=== PATIENT | male | born 1955 | race American Indian/Alaskan Native ===

== ENCOUNTER 2024-04-17 16:19 | Inpatient (IN) | payer OTHER ==
[~2024-04-17] VITALS: Ht 182.9 cm; Wt 70.7 kg
[2024-04-17 16:44] LABS: Basophils # (auto) 0.1 10 ^3/uL (0-0.2); Basophils % (auto) 0.4 % (0.0-2.0); Eosinophils # (auto) 0 10 ^3/uL (0-0.8); Eosinophils % (auto) 0.2 % (0.0-7.0); Hematocrit 41.7 % (41.0-53.0); Hemoglobin 13.9 g/dL (13.5-17.5); Lymphocytes # (auto) 1.2 10 ^3/uL (0.4-5.4); Mean Corpuscular Hgb Conc. 33.4 g/dL (32.0-36.0); Monocytes # (auto) 0.8 10 ^3/uL (0-1.3); Monocytes % (auto) 5.6 % (0.0-12.0); Neutrophils # (auto) 12.8 10 ^3/uL (1.6-8.6); Neutrophils % (auto) 85.8 % (37.0-80.0); Nucleated Red Blood Cells % 0.1 %; Red Blood Cells 4.35 10^6/uL (4.5-5.90); Red Cell Distribution Width 13.7 % (11.8-14.3); White Blood Cell 14.9 10^3/uL (4.4-10.8)
[2024-04-17 17:07] LABS: Alanine Aminotransferase 101 U/L (7-40); Albumin 4.1 g/dL (3.2-4.8); Alkaline Phosphatase 82 U/L (46-116); Anion Gap 3 (5-15); Aspartate Aminotransferase 76 U/L (13-40); BUN/Creatinine Ratio 8.2 (10.0-20.0); Bilirubin, Total 0.7 mg/dL (0.2-1.0); Blood Urea Nitrogen 9 mg/dL (9-23); Carbon Dioxide 30 mmol/L (20-30); Chloride 103 mmol/L (98-107); Glucose 154 mg/dL (74-106); Potassium 4.2 mmol/L (3.5-5.1); Sodium 136 mmol/L (136-145); Total Protein 7.2 g/dL (5.7-8.2)
[2024-04-17 17:17] LABS: INR 1.03 (0.9-1.15); Partial Thromboplastin Time 24.5 SEC (24.5-34.5); Prothrombin Time 10.9 sec (9.3-11.8)
[2024-04-17 17:26] LABS: Urine Bacteria FEW /hpf (None Seen); Urine Blood Negative /uL (Negative); Urine Clarity Clear (Clear); Urine Color Yellow (Yellow); Urine Mucus FEW (None Seen); Urine Protein, UAD 1+ (Negative); Urine Specific Gravity 1.023 (1.001-1.035); Urine Urobilinogen Normal (Negative); Urine WBC 16 /hpf (0 - 3)
[2024-04-17 17:39] LABS: Amphetamine Screen, Urine Pos (NEGATIVE); Barbiturate Scree,Urine Neg (NEGATIVE); Benzodiazephine Screen, Urine Neg (NEGATIVE); Cocaine Screen, Urine Neg (NEGATIVE); Opiate Scree,Urine Neg (NEGATIVE)
[2024-04-17 17:40] LABS: Cannabinoid Screen, Urine Pos (NEGATIVE); Phencyclidine Screen, Urine Neg (NEGATIVE)
[2024-04-17] MEDS: cefTRIAXone 1GM/50ML D5W 50 ML IV ONE (18:11)
[2024-04-17] MEDS: ASPirin 325 MG TAB PO ONE (18:12)
[2024-04-17] MEDS: SODIUM CHLORIDE 0.9% 1,000 ML IV ONE (18:12)
[2024-04-17] MEDS: NITROGLYCERIN 0.4 MG SL TAB SL ONE (18:12)
[2024-04-17 19:05] VITALS: PULSE 75; RESP 18; O2SAT 98
[2024-04-17] MEDS ORDERED: DOCUSATE SOD 100 MG CAP PO PRN (20:15)
[2024-04-17] MEDS ORDERED: NITROGLYCERIN 0.4 MG SL TAB SL PRN (20:15)
[2024-04-17] MEDS ORDERED: ACETAMINOPHEN 325 MG TAB PO PRN (20:15)
[2024-04-17] MEDS ORDERED: MORPHINE SULFATE INJ 2 MG/ml SYRG IV PRN (20:15)
[2024-04-17] MEDS ORDERED: ONDANSETRON HCL 4 MG/2 ML VIAL IV PRN (20:15)
[2024-04-17] MEDS: IOHEXOL 350 MG/ML 100ML IJ ONE (20:52)
[2024-04-17] MEDS: SODIUM CHLOR 0.9% PF (SALINE LOCK) 10ML VIAL/SYR IV SCH (22:00)
[2024-04-17] MEDS: ATORVASTATIN 20 MG TAB PO SCH (23:49)
[2024-04-18] MEDS: HYDROcodone-ACET 5/325MG TAB PO PRN (00:14)
[2024-04-18 03:54] LABS: Basophils # (auto) 0.1 10 ^3/uL (0-0.2); Basophils % (auto) 0.4 % (0.0-2.0); Eosinophils # (auto) 0.1 10 ^3/uL (0-0.8); Eosinophils % (auto) 0.7 % (0.0-7.0); Hematocrit 39.9 % (41.0-53.0); Hemoglobin 13.6 g/dL (13.5-17.5); Lymphocytes % (auto) 14.6 % (10.0-50.0); Mean Corpuscular Hemoglobin 32.7 pg (28.0-32.0); Mean Corpuscular Volume 95.9 fL (80.0-100.0); Monocytes % (auto) 7.1 % (0.0-12.0); Neutrophils # (auto) 10.4 10 ^3/uL (1.6-8.6); Neutrophils % (auto) 77.2 % (37.0-80.0); Nucleated Red Blood Cells % 0.2 %; Red Blood Cells 4.16 10^6/uL (4.5-5.90); Red Cell Distribution Width 13.5 % (11.8-14.3); White Blood Cell 13.5 10^3/uL (4.4-10.8)
[2024-04-18 03:59] LABS: Alanine Aminotransferase 87 U/L (7-40); Albumin 3.8 g/dL (3.2-4.8); Alkaline Phosphatase 72 U/L (46-116); Anion Gap 4 (5-15); Aspartate Aminotransferase 64 U/L (13-40); BUN/Creatinine Ratio 9.8 (10.0-20.0); Bilirubin, Total 0.9 mg/dL (0.2-1.0); Blood Urea Nitrogen 9 mg/dL (9-23); Calcium 8.9 mg/dL (8.5-10.1); Carbon Dioxide 27 mmol/L (20-30); Chloride 104 mmol/L (98-107); Glucose 110 mg/dL (74-106); Potassium 3.9 mmol/L (3.5-5.1); Sodium 135 mmol/L (136-145); Total Protein 6.8 g/dL (5.7-8.2)
[2024-04-18 09:15] LABS: Triglycerides 38 mg/dL (< 150)
[2024-04-18 09:16] LABS: LDL Cholesterol 82 mg/dL (< 100)
[2024-04-18 09:17] LABS: HDL Cholesterol 43 mg/dL (40-59)
[2024-04-18 09:18] LABS: Cholesterol 130 mg/dL (< 200)
[2024-04-18] MEDS: ASPirin 81 mg TAB PO SCH (10:51)
[2024-04-18] MEDS: cefTRIAXone 1GM/50ML D5W 50 ML IV SCH (10:59)
[2024-04-18 13:06] VITALS: BP 127/68; PULSE 59; RESP 17; TEMP 97.6; O2SAT 98
[2024-04-18 16:26] VITALS: RESP 18; O2SAT 100
[2024-04-18 17:00] VITALS: BP 111/50; PULSE 68; RESP 18; TEMP 97.5; O2SAT 100
[2024-04-18 17:23] VITALS: TEMP 36.4
== END 2024-04-18 18:35 | disposition home or self-care (01) | DRG 313 ==
LOC: ER 16:19 → TELE 20:17 → TELE-E-ADS 04-18 10:10 → TELE-CENTR 04-18 14:45
PROVIDERS: ADMIT Nurse Practitioner Family; ATTEND Internal Medicine Geriatric Medicine
DX: R07.89 Other chest pain (principal); R73.9 Hyperglycemia, unspecified; F15.10 Other stimulant abuse, uncomplicated; F12.10 Cannabis abuse, uncomplicated; G89.29 Other chronic pain; Z86.73 Personal history of transient ischemic attack (TIA), and cerebral infarction without residual deficits; Z87.891 Personal history of nicotine dependence
CPT/HCPCS: 36415; 71045; 71275; 80053; 80061; 80307; 80320; 81001; 83036; 83605; 84484; 85025; 85379; 85610; 85730; 87086; 93005; 93306; G0378

== ENCOUNTER 2024-07-08 19:47 | Emergency (ER) | payer OTHER ==
[~2024-07-08] VITALS: Ht 182.9 cm; Wt 75.8 kg
[2024-07-08 20:05] VITALS: BP 130/82; RESP 16; O2SAT 96
[2024-07-08 20:42] VITALS: PULSE 81
[2024-07-09] MEDS: HYDROcodone-ACET 10/325MG TAB PO ONE (00:42)
[2024-07-09] MEDS: IBUPROFEN 800 MG TAB PO ONE (00:42)
[2024-07-09] MEDS ORDERED: HYDR-4798 PO (02:28)
[2024-07-09] MEDS ORDERED: IBUP200T76 PO (02:28)
== END 2024-07-09 03:16 | disposition home or self-care (01) ==
LOC: ER 19:47
DX: S33.5XXA Sprain of ligaments of lumbar spine, initial encounter (principal); M48.061 Spinal stenosis, lumbar region without neurogenic claudication; M54.16 Radiculopathy, lumbar region; M43.16 Spondylolisthesis, lumbar region; M47.816 Spondylosis without myelopathy or radiculopathy, lumbar region; F15.10 Other stimulant abuse, uncomplicated; Z87.891 Personal history of nicotine dependence; W18.09XA Striking against other object with subsequent fall, initial encounter; Y93.89 Activity, other specified; Y92.89 Other specified places as the place of occurrence of the external cause; Y99.8 Other external cause status
CPT/HCPCS: 72131; 93005

== ENCOUNTER 2025-07-31 23:55 | Emergency (ER) | payer OTHER ==
[~2025-07-31] VITALS: Ht 182.9 cm; Wt 72.6 kg
[~2025-07-31 23:55] MED LIST: HYDR-4798 PO; IBUP200T76 PO
[2025-08-01 00:33] LABS: Hematocrit 41.2 % (41.0-53.0); Hemoglobin 14.3 g/dL (13.5-17.5); Mean Corpuscular Hemoglobin 32.4 pg (28.0-32.0); Mean Corpuscular Volume 93.6 fL (80.0-100.0); Nucleated Red Blood Cells % 0.1 %
[2025-08-01] MEDS: IPRATROPIUM BROM 0.5 MG/2.5ML INH SOL NEB ONE (00:37)
[2025-08-01] MEDS: ALBUTEROL SULF 2.5 MG/0.5ML(0.5%) NEB SOLN NEB ONE (00:37)
[2025-08-01 00:51] LABS: Chloride 98 mmol/L (98-107); Potassium 4.1 mmol/L (3.5-5.1)
[2025-08-01 00:52] LABS: Anion Gap 12 (5-15); Carbon Dioxide 25 mmol/L (20-31)
[2025-08-01 00:54] LABS: Calcium 8.4 mg/dL (8.7-10.4); Sodium 135 mmol/L (136-145)
[2025-08-01 00:57] LABS: BUN/Creatinine Ratio 15.1 (10.0-20.0); Blood Urea Nitrogen 16 mg/dL (9-23)
[2025-08-01 01:04] LABS: Glucose 106 mg/dL (74-106)
--- NOTE | 2025-08-01 01:06 | ECG ---
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
--- NOTE | 2025-08-01 01:08 | DVH ---
CHEST RADIOGRAPH Indication: Shortness of breath Technique: Single frontal view of the chest was obtained COMPARISON: CT CT ANGIO CHEST CONTRAST on DOS: 04/17/24, XY CHEST PORTABLE on DOS: 04/17/24 FINDINGS: Lines and Tubes: None Lungs: Moderate patchy left basilar pulmonary infiltrate. Pleura: No effusion. No pneumothorax. Cardiomediastinal contours: Unremarkable Bones: Unremarkable IMPRESSION: 1. Moderate patchy left basilar pulmonary infiltrate.
[2025-08-01] MEDS ORDERED: BENZ100C97 PO (02:05)
[2025-08-01] MEDS ORDERED: ACET500T58 PO (02:05)
[2025-08-01] MEDS ORDERED: DOXY1CAP57 PO (02:05)
[2025-08-01] MEDS ORDERED: AZIT500T66 PO (02:05)
[2025-08-01] MEDS ORDERED: ALBU108A5 IN (02:05)
--- NOTE | 2025-08-01 02:06 | ED.PDOC ---
SOB-HPI HPI Comments Has been is a 69-year-old male who arrives to the ED today for evaluation of shortness a breath and cough concerns for the past two weeks. Patient states that the symptoms came on a few weeks ago and has been relatively consistent. Patient denies any intrapulmonary concerns. Patient states he had pneumonia several years back and that this feels similar. Patient denies any nausea or vomiting but states possible intermittent fever. Patient was tachycardic and hypertensive at arrival. Patient was satting at 93% on room air. Chief Complaint: Shortness of Breath Time Seen by MD: 00:00 Reviewed notes: Nurses Notes Information Source: Patient, Friend Mode of Arrival: Ambulatory Severity: Moderate Timing: Weeks Duration: Since onset Context: At Rest PE Risk Factors: None History of: None Prehospital treatment: None Modifying Factors: Nothing Associated Signs and Symptoms: Fever, Cough Quality: Burning If cough with SOB: Productive, White Past Medical History PAST MEDICAL HISTORY: Denies Surgical History: Hernia Repair Family History Family History: Reviewed,noncontributory to illness Social History Smoker: Non-Smoker, Quit Greater Than 1 Year Alcohol: Heavy Drugs: Methamphetamine Lives In: Home Constitutional: reports: fever, weakness; denies: chills, diaphoresis, fatigue, malaise, sweats, others EENTM: denies: blurred vision, double vision, ear bleeding, ear discharge, ear drainage, ear pain, ear ringing, eye pain, eye redness, hearing loss, mouth pain, mouth swelling, nasal discharge, nose bleeding, nose congestion, nose pain, photophobia, tearing, throat pain, throat swelling, voice changes, others Respiratory: reports: cough, shortness of breath; denies: hemoptysis, orthopnea , SOB at rest, SOB with excertion, stridor, wheezing, others Cardiovascular: reports: chest pain (Pruritic); denies: dizzy spells, diaphoresis, Dyspnea on exertion, edema, irregular heart beat, left arm pain, lightheadedness, palpitations, PND, syncope, others Gastrointestinal: denies: abdomen distended, abdominal pain, blood streaked bowels, constipated, diarrhea, dysphagia, difficulty swallowing, hematemesis, melena, nausea, poor appetite, poor fluid intake, rectal bleeding, rectal pain, vomiting, others Genitourinary: denies: burning, dysuria, flank pain, frequency, hematuria, incontinence, penile discharge, penile sore, pain, testicle pain, testicle swelling, urgency, others Neurological: denies: dizziness, fainting, headache, left sided numbness, left sided weakness, numbness, paresthesia, pre-existing deficit, right sided numbness, right sided weakness, seizure, speech problems, tingling, tremors, weakness, others Musculoskeletal: denies: back pain, gout, joint pain, joint swelling, muscle pain, muscle stiffness, neck pain, others Integumetry: denies: bruises, change in color, change in hair/nails, dryness, laceration, lesions, lumps, rash, wounds, others Hematologic/Lymphatic: denies: anemia, blood clots, easy bleeding, easy bruising, swollen glands, others Endocrine: denies: excessive hunger, excessive sweating, excessive thirst, excessive urination, flushing, intolerance to cold, intolerance to heat, unexplained weight gain, unexplained weight loss, others Psychiatric: denies: anxiety, bipolar disorder, depression, hopeless, panic disorder, schizophrenia, sleepless, suicidal, others Physical Exam General Appearance: Moderate Distress (Patient presents as a moderately ill male.), Normal HEENT: Normal ENT Inspection, Pharynx Normal, TMs Normal Neck: Full Range of Motion, Non-Tender, Normal, Normal Inspection Respiratory: Other (Mild patchy rhonchi and wheezing appreciated right middle lobe and left upper lobe.) Cardiovascular: No Edema, No JVD, No Murmur, No Gallop, Normal Peripheral Pulses, Tachycardia Breast Exam: Deferred Gastrointestinal: No Organomegaly, Non Tender, No Pulsatile Mass, Normal Bowel Sounds, Soft Genitalia: Deferred Pelvic: Deferred Rectal: Deferred Extremities: No calf tenderness, Normal capillary refill, Normal inspection, Normal range of motion, Non-tender, No pedal edema Neurologic: Alert Cerebellar Function: NOT DONE Reflexes: NOT DONE Skin: Dry, Normal Color, Warm Lymphatic: No Adenopathy Was a procedure done? Was a procedure done?: No Differential Dx Differential Diagnosis: Asthma, Bronchitis, Myocardial infarction, Pneumonia, Respiratory Distress X-Ray, Labs, Meds, VS Vital Signs Date Time Temp Pulse Resp B/P (MAP) Pulse Ox O2 Delivery O2 Flow Rate FiO2 08/01/25 01:10 101 08/01/25 00:35 18 93 Room Air* 0 21 07/31/25 23:57 98.9 106 20 162/85 95 98.9 Lab Test 08/01/25 01:40 08/01/25 00:19 Range/Units Troponin I High Sensitivity Pending < 3 L </=54 ng/L White Blood Count 12.7 H 4.4-10.8 10^3/uL Red Blood Count 4.40 L 4.5-5.90 10^6/uL Hemoglobin 14.3 13.5-17.5 g/dL Hematocrit 41.2 41.0-53.0 % Mean Corpuscular Volume 93.6 80.0-100.0 fL Mean Corpuscular Hemoglobin 32.4 H 28.0-32.0 pg Mean Corpuscular Hemoglobin Concent 34.6 32.0-36.0 g/dL Red Cell Distribution Width 12.4 11.8-14.3 % Platelet Count 315 140-450 10^3/uL Mean Platelet Volume 7.1 6.9-10.8 fL Neutrophils (%) (Auto) 75.8 37.0-80.0 % Lymphocytes (%) (Auto) 14.6 10.0-50.0 % Monocytes (%) (Auto) 8.8 0.0-12.0 % Eosinophils (%) (Auto) 0.6 0.0-7.0 % Basophils (%) (Auto) 0.2 0.0-2.0 % Neutrophils # (Auto) 9.6 H 1.6-8.6 10 ^3/uL Lymphocytes # (Auto) 1.9 0.4-5.4 10 ^3/uL Monocytes # (Auto) 1.1 0-1.3 10 ^3/uL Eosinophils # (Auto) 0.1 0-0.8 10 ^3/uL Basophils # (Auto) 0 0-0.2 10 ^3/uL Nucleated Red Blood Cells 0.1 % Sodium Level 135 L 136-145 mmol/L Potassium Level 4.1 3.5-5.1 mmol/L Chloride Level 98 98-107 mmol/L Carbon Dioxide Level 25 20-31 mmol/L Anion Gap 12 5-15 Blood Urea Nitrogen 16 9-23 mg/dL Creatinine 1.06 0.700-1.30 mg/dL Glomerular Filtration Rate Calc 76 >90 mL/min BUN/Creatinine Ratio 15.1 10.0-20.0 Serum Glucose 106 74-106 mg/dL Calcium Level 8.4 L 8.7-10.4 mg/dL Current Medications Medications (Trade) Dose Ordered Sig/[place] Route Start Time Stop Time Status Last Admin Albuterol (Ventolin Medneb) 2.5 mg ONCE ONCE NEB 08/01/25 00:15 08/01/25 00:16 DC 08/01/25 00:37 Ipratropium [place] (Atrovent Medneb) 0.5 mg ONCE ONCE NEB 08/01/25 00:15 08/01/25 00:16 DC 08/01/25 00:37 X-Ray, Labs, Meds, VS Comment All studies performed the ED were evaluated by me personally. Laboratories were unremarkable for any systemic process. EKG revealed a sinus rhythm with a rate of 99. OH interval of 113 and QT interval of 342. Normal EKG. Chest x-ray was remarkable for patchy consolidation indicative of pneumonia. Patient was given his 1st dose of antibiotics prior to discharge. Advised patient utilize antibiotics as directed until completion as well as additional medication as needed Time of 1ST Reevaluation: 02:02 Reevaluation 1ST: Improved Consultation: PCP Patient Education/Counseling: Diagnosis, Treatment Family Education/Counseling: Diagnosis, Treatment SEPSIS Sepsis Screen Date sepsis recognized/suspect: Jul 31, 2025 Time Sepsis recognized/suspect: 2356 Recent Procedure: No On Antibiotic Therapy: No Respiratory Rate >20: No Heart Rate >90: Yes Temp<36 C (96.8 F) or >38.3 C: No SBP <90 or MAP <65 mmHG: No New Acute Mental Status Change: No Is the patient on CPAP, BIPAP,: No Physician Orders Chest Portable (08/01/25 00:06) Troponin-I Hs (08/01/25 01:06) Troponin-I Hs (08/01/25 03:06) Vital Signs Date Time Temp Pulse Resp B/P (MAP) Pulse Ox O2 Delivery O2 Flow Rate FiO2 08/01/25 01:10 101 08/01/25 00:35 18 93 Room Air* 0 21 07/31/25 23:57 98.9 106 20 162/85 95 98.9 Laboratory Tests Test 08/01/25 00:19 White Blood Count 12.7 10^3/uL (4.4-10.8) H Medications Medications Dose Ordered Sig/[place] Route Start Time Stop Time Status Last Admin Dose Admin Albuterol 2.5 mg ONCE ONCE NEB 08/01/25 00:15 08/01/25 00:16 DC 08/01/25 00:37 Ipratropium [place] 0.5 mg ONCE ONCE NEB 08/01/25 00:15 08/01/25 00:16 DC 08/01/25 00:37 Departure 1 Departure Time of Disposition: 02:03 Impression: Primary Impression: Pneumonia Disposition: 01 HOME / SELF CARE / HOMELESS Condition: Stable Additional Instructions: Advise utilizing antibiotics as directed until completion as well as additional medication as needed. e-Prescriptions Acetaminophen (Acetaminophen) 500 Mg Tab 500 MG PO Q4HP PRN, #30 TAB Prov: NED GUERRERO [facility] 08/01/25 Benzonatate (Benzonatate) 100 Mg Cap 1 CAP PO TID, #30 CAP Prov: NED GUERRERO [facility] 08/01/25 Albuterol Sulfate (Albuterol Sulfate Hfa) 108 Mcg/Act Aer 108 MCG IN Q4HP PRN, #1 AER Prov: NED GUERRERO [facility] 08/01/25 Azithromycin (Azithromycin) 500 Mg Tab 1 TAB PO DAILY for 4 Days, #4 TAB Prov: NED GUERRERO [facility] 08/01/25 Doxycycline Monohydrate (Doxycycline Monohydrate) 100 Mg Cap 1 CAP PO BID for 10 Days, #20 CAP Prov: NED GUERRERO [facility] 08/01/25 Discharged With: Self, Friend Critical Care Note Critical Care Time?: No Stability Stability form required: No Heart Score Heart Score: Heart Score Response (Comments) Value History Slightly Suspicious 0 EKG Normal 0 Age >65 2 Risk Factors 1 or 2 risk factors 1 Troponin Normal limit 0 Total 3 NED GUERRERO [facility] Aug 01, 2025 02:06
[2025-08-01] MEDS: AZITHROMYCIN 250 MG TAB PO ONE (03:09)
[2025-08-01] MEDS: DOXYCYCLINE 100 MG TAB/CAP PO ONE (03:09)
[2025-08-01 05:56] VITALS: BP 132/76; PULSE 78; RESP 18; TEMP 98.5; O2SAT 98
--- NOTE | 2025-08-04 16:15 | ECG ---
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
== END 2025-08-01 06:20 | disposition home or self-care (01) ==
LOC: ER 08-01 00:02
DX: J18.9 Pneumonia, unspecified organism (principal); Z79.899 Other long term (current) drug therapy
CPT/HCPCS: 36415; 71045; 80048; 84484; 85025; 93005; 94640; 96372; 99285; J1100